=== PATIENT | male | born 1980 | race Caucasian/White ===

== ENCOUNTER 2025-01-29 06:31 | Day surgery (SDC) | payer BC, SELFPAY ==
[2025-01-29 08:20] LABS: Glucose - Point of Care 62 mg/dl (70-99)
== END 2025-01-29 09:51 | disposition home or self-care (01) ==
LOC: GI 06:31
PROVIDERS: ATTENDING PHYSICIAN Internal Medicine
DX: Z12.11 Encounter for screening for malignant neoplasm of colon (principal); R19.5 Other fecal abnormalities; K57.30 Diverticulosis of large intestine without perforation or abscess without bleeding; D12.7 Benign neoplasm of rectosigmoid junction
CPT/HCPCS: 45385; 82962; 88305